=== PATIENT | female | born 1995 | race Two or more races ===

== ENCOUNTER 2023-06-23 11:33 | Emergency (ER) | payer OTHER ==
[~2023-06-23] VITALS: Ht 165.1 cm; Wt 79.4 kg
[2023-06-23 15:31] LABS: HEMOGLOBIN 12.6 g/dL (12.0-15.00); MEAN CELL VOLUME 77.8 fL (80.00-100.00); MEAN CORPUSCULAR HEMOGLOBIN 25.1 pg (27.00-32.0); MEAN CORPUSCULAR HGB CONC 32.3 g/dl (32.0-36.0); PLATELET COUNT 266 K/uL (150-450); RED BLOOD COUNT 5.01 M/uL (4.00-6.00); RED CELL DISTRIBUTION WIDTH 15.4 % (11.5-14.5)
[2023-06-23 16:19] LABS: ALBUMIN 3.8 gm/dL (3.4-5.0); BILIRUBIN TOTAL 0.6 mg/dL (0.3-1.2); CALCIUM 9.4 mg/dL (8.5-10.1); CREATININE SERUM 0.82 mg/dL (0.55-1.02); GFR 83.01; GLOBULINA 4.2 G/DL (2.4-3.5); POTASSIUM 3.84 mEq/L (3.5-5.1)
[2023-06-23] MEDS ORDERED: INTESTINEX680 M1 PO (16:54)
[2023-06-23] MEDS ORDERED: ONDANSETRON HCL4 MG PO (16:54)
[2023-06-23] MEDS ORDERED: OMEPRAZOLE MAGN20 MG PO (16:54)
[2023-06-23] MEDS ORDERED: ZITHROMAX500 MG PO (16:54)
== END 2023-06-23 17:21 | disposition home or self-care (01) ==
LOC: ER 11:33 → EDBD 11:33 → ER 12:09
PROVIDERS: Nurse Practitioner Family
DX: B34.9 Viral infection, unspecified (principal); Z20.822 Contact with and (suspected) exposure to COVID-19; Z91.013 Allergy to seafood

== ENCOUNTER → 2024-09-30 | Emergency (ER) | payer OTHER ==
[~2024-09-30] VITALS: Ht 165.1 cm; Wt 85.3 kg
[~2024-09-30] MED LIST: INTESTINEX680 M1 PO; OMEPRAZOLE MAGN20 MG PO; ONDANSETRON HCL4 MG PO; ZITHROMAX500 MG PO
== END | disposition left against medical advice (07) ==
LOC: ER 01:08
DX: Z53.21 Procedure and treatment not carried out due to patient leaving prior to being seen by health care provider (principal)

== ENCOUNTER 2025-01-09 17:57 | Emergency (ER) | payer OTHER ==
[~2025-01-09] VITALS: Ht 165.1 cm; Wt 88.5 kg
[2025-01-09] MEDS ORDERED: CEFTRIAXONE SODIUM 1,000 MG VIAL IM ONE (19:45)
[2025-01-09] MEDS ORDERED: KETOROLAC TROMETHAMINE 60 MG VIAL IM ONE ×2 (19:45→20:04)
[2025-01-09] MEDS ORDERED: LIDOCAINE HCL 1% 10ML VIAL PERCUT ONE (19:45)
[2025-01-09] MEDS ORDERED: CEFTRIAXONE SODIUM 1,000 MG VIAL ONE (20:04)
[2025-01-09] MEDS ORDERED: PEPCID AC20 MG PO (20:55)
[2025-01-09] MEDS ORDERED: CEFUROXIME500 MG PO (20:55)
== END 2025-01-09 23:18 | disposition home or self-care (01) ==
LOC: ER 17:57
DX: S81.812A Laceration without foreign body, left lower leg, initial encounter (principal); X58.XXXA Exposure to other specified factors, initial encounter; Y93.89 Activity, other specified; Y92.89 Other specified places as the place of occurrence of the external cause; Y99.9 Unspecified external cause status; Z87.09 Personal history of other diseases of the respiratory system; Z91.013 Allergy to seafood

== ENCOUNTER 2025-02-01 23:28 | Emergency (ER) | payer OTHER ==
[~2025-02-01] VITALS: Ht 165.1 cm; Wt 89.8 kg
[~2025-02-01 23:28] MED LIST changes: +CEFUROXIME500 MG PO; +PEPCID AC20 MG PO
[2025-02-01 23:42] VITALS: BP 120/85; O2SAT 100
[2025-02-02] MEDS ORDERED: KETOROLAC TROMETHAMINE 60 MG VIAL IM STA (01:43)
[2025-02-02] MEDS ORDERED: KETO10TA2 PO (01:54)
== END 2025-02-02 01:59 ==
LOC: ER 02-02 01:04
DX: R07.89 Other chest pain (principal); Z48.02 Encounter for removal of sutures; Z91.013 Allergy to seafood